=== PATIENT | female | born 1965 ===

== ENCOUNTER 2020-08-13 08:16 | Observation (INO) ==
[~2020-08-13 08:16] MED LIST: Buffered Lidocaine 1% SYRIN 1 ml INTRADERM ONE; Famotidine IV 10 MG/ML 2 ml VIAL (20 mg) IV ONE; Lactated Ringers 1000 ml BAG 1,000 ML IV SCH
[2020-08-13] MEDS ORDERED: Propofol 10 MG/ML 20 ML BTL ONE ×3 (08:36→11:47)
[2020-08-13] MEDS ORDERED: Lidocaine 2% PF 5 ML VIAL ONE ×2 (08:38→09:44)
[2020-08-13] MEDS ORDERED: Midazolam 2 mg/2 ml VIAL 1 mg/ml 2 ml VIAL (2 mg) ONE (08:39)
[2020-08-13] MEDS ORDERED: Ondansetron 4 mg VIAL 2 MG/ML 2 ml VIAL ONE ×2 (08:41→14:52)
[2020-08-13] MEDS ORDERED: ceFAZolin 2 GM PREMIX 2 GM/50 ML BAG ONE (08:44)
[2020-08-13] MEDS ORDERED: Famotidine IV 10 MG/ML 2 ml VIAL (20 mg) ONE (08:45)
[2020-08-13] MEDS ORDERED: Buffered Lidocaine 1% SYRIN 1 ml INTRADERM ONE (08:45)
[2020-08-13] MEDS ORDERED: ROPIVACAINE 5 MG/ML 30 ML BTL (0.5%) ONE ×2 (09:25→09:44)
[2020-08-13] MEDS ORDERED: fentaNYL 100 mcg/2 ml 50 MCG/ML VIAL ONE (09:44)
[2020-08-13] MEDS ORDERED: Midazolam 10 mg/10 ml VIAL 1 mg/ml 10 ml VIAL (10 mg) ONE (09:44)
[2020-08-13] MEDS ORDERED: Bupivacaine 0.5% SDV PF 30ML VIAL ONE (09:57)
[2020-08-13] MEDS ORDERED: DiMENhydriNATE IV 50 mg/ml 1 ml VIAL IV PUSH PRN (10:56)
[2020-08-13] MEDS ORDERED: Naloxone 0.4 mg VIAL 0.4 mg/ml 1 ml VIAL IV PRN (10:56)
[2020-08-13] MEDS ORDERED: Ondansetron 4 mg VIAL 2 MG/ML 2 ml VIAL IV PRN (10:56)
[2020-08-13] MEDS ORDERED: fentaNYL 100 mcg/2 ml 50 MCG/ML VIAL IV PRN (10:56)
[2020-08-13] MEDS ORDERED: Glycopyrrolate IV 0.2 MG/ML 1 ML VIAL ONE (10:57)
[2020-08-13] MEDS ORDERED: diPHENhydraMINE 25 mg TAB PO PRN (13:35)
[2020-08-13] MEDS ORDERED: Morphine 2 MG/ML SYRINGE IV PRN (13:35)
[2020-08-13] MEDS ORDERED: Ondansetron ODT 4 mg TAB 4 MG TAB PO PRN (13:35)
[2020-08-13] MEDS ORDERED: diPHENhydraMINE IV 50 MG/ML 1 ml VIAL (BENADRYL) IV PRN (13:35)
[2020-08-13] MEDS ORDERED: Magnesium Hydroxide LIQ 30 ML UDC PO PRN (13:35)
[2020-08-13] MEDS ORDERED: Lactulose 30 ml UDC PO PRN (13:35)
[2020-08-13] MEDS: Lactated Ringers 1000 ml BAG 1,000 ML IV SCH (14:56)
[2020-08-13] MEDS: Ondansetron 4 mg VIAL 2 MG/ML 2 ml VIAL IV PRN ×2 (14:56→21:49)
[2020-08-13] MEDS ORDERED: Ketamine HCL 50 mg/ml 10 ml VIAL (500 MG) ONE ×2 (14:56→15:07)
[2020-08-13] MEDS: oxyCODONE/Acetamin 5/325 mg TAB PO PRN (20:36)
[2020-08-13] MEDS: Magnesium Hydroxide LIQ 30 ML UDC PO SCH (20:36)
[2020-08-13] MEDS: ceFAZolin 1 GM ADVAN 1 GM in NS 0.9% 50 ML 50 ML IVPB SCH (21:52)
[2020-08-14] MEDS: Lactated Ringers 1000 ml BAG 1,000 ML IV SCH (01:30)
[2020-08-14 05:23] LABS: Hematocrit 37 % (35-47); Hemoglobin 12.8 g/dL (12.0-16.0); Platelet Count 236 10^3/uL (150-450)
[2020-08-14 05:40] LABS: BUN/Creatinine Ratio 17.2 (8-20); Calcium 8.6 mg/dL (8.6-10.3); EGFR African American 116.1 (>60); Potassium 4.1 mmol/L (3.5-5.0)
[2020-08-14] MEDS: ceFAZolin 1 GM ADVAN 1 GM in NS 0.9% 50 ML 50 ML IVPB SCH ×2 (05:42→13:40)
[2020-08-14] MEDS: oxyCODONE/Acetamin 5/325 mg TAB PO PRN ×3 (05:42→13:42)
[2020-08-14] MEDS ORDERED: Vitamin THERAPEUTIC TAB PO SCH (09:00)
[2020-08-14] MEDS ORDERED: Polyethylene Glycol 3350 17 GM PACKET PO SCH (09:00)
[2020-08-14] MEDS: Magnesium Hydroxide LIQ 30 ML UDC PO SCH (09:37)
[2020-08-14 11:21] VITALS: BP 97/61
[2020-08-16] MEDS ORDERED: Scopolamine PATCH Remove NOTE PATCH OFF ONE (06:00)
== END 2020-08-14 15:10 | disposition home or self-care (01) ==
LOC: OR 08:16 → SSU 08:16
PROVIDERS: ADMIT Orthopaedic Surgery Adult Reconstructive Orthopaedic Surgery; ATTEND Orthopaedic Surgery Adult Reconstructive Orthopaedic Surgery

== ENCOUNTER 2021-07-20 11:45 | Observation (INO) ==
[~2021-07-20 11:45] MED LIST changes: -Famotidine IV 10 MG/ML 2 ml VIAL (20 mg) IV ONE
[2021-07-20] MEDS ORDERED: Buffered Lidocaine 1% SYRIN 1 ml INTRADERM ONE (12:16)
[2021-07-20] MEDS ORDERED: ceFAZolin 2 GM in NS PREMIX 2 GM/100 ML BAG IVPB ONE (12:16)
[2021-07-20] MEDS ORDERED: Lidocaine 2% PF 5 ML VIAL ONE (13:02)
[2021-07-20] MEDS ORDERED: Acetaminophen IV 1 GM/100ML 100 ML IV ONE (13:38)
[2021-07-20] MEDS ORDERED: Ropivacaine 5 MG/ML 20 ML VIAL 0.5% (100 MG) ONE (14:48)
[2021-07-20] MEDS ORDERED: Midazolam 2 mg/2 ml VIAL 1 mg/ml 2 ml VIAL (2 mg) ONE ×2 (14:53→15:14)
[2021-07-20] MEDS ORDERED: Dexamethasone IV 4 MG/ML VIAL 1 ml VIAL ONE ×2 (14:53→15:45)
[2021-07-20] MEDS ORDERED: Bupivacaine 0.5% SDV PF 30ML VIAL ONE (14:54)
[2021-07-20] MEDS ORDERED: Lidocaine 1% MPF 5 ML VIAL ONE (15:10)
[2021-07-20] MEDS ORDERED: Rocuronium 50 mg VIAL 10 mg/ml 5 ml VIAL (50 mg) ONE (15:13)
[2021-07-20] MEDS ORDERED: fentaNYL 250 mcg/5 ml 50 MCG/ML 5 ml VIAL (250 MCG) ONE (15:14)
[2021-07-20] MEDS ORDERED: HYDROmorphone 0.5 MG/0.5 ML SYRINGE ONE ×2 (15:44→16:08)
[2021-07-20] MEDS ORDERED: Ondansetron 4 mg VIAL 2 MG/ML 2 ml VIAL ONE ×2 (15:45→16:22)
[2021-07-20] MEDS ORDERED: Propofol 10 MG/ML 20 ML BTL ONE (15:55)
[2021-07-20] MEDS ORDERED: diPHENhydraMINE 25 mg TAB PO PRN (16:24)
[2021-07-20] MEDS ORDERED: Magnesium Hydroxide LIQ 30 ML UDC PO PRN (16:24)
[2021-07-20] MEDS ORDERED: diPHENhydraMINE IV 50 MG/ML 1 ml VIAL (BENADRYL) IV PRN (16:24)
[2021-07-20] MEDS ORDERED: Ondansetron 4 mg VIAL 2 MG/ML 2 ml VIAL IV PRN (16:24)
[2021-07-20] MEDS ORDERED: Ondansetron ODT 4 mg TAB 4 MG TAB PO PRN (16:24)
[2021-07-20] MEDS ORDERED: Lactulose 30 ml UDC PO PRN (16:24)
[2021-07-20] MEDS ORDERED: Morphine 2 MG/ML SYRINGE IV PRN (16:35)
[2021-07-20] MEDS ORDERED: Lactated Ringers 1000 ml BAG 1,000 ML IV SCH (17:00)
[2021-07-20] MEDS ORDERED: HYDROmorphone 1 MG/1 ML SYRINGE ONE (18:27)
[2021-07-20] MEDS ORDERED: DiMENhydriNATE IV 50 mg/ml 1 ml VIAL IV PUSH PRN (18:28)
[2021-07-20] MEDS ORDERED: Naloxone 0.4 mg VIAL 0.4 mg/ml 1 ml VIAL IV PRN (18:28)
[2021-07-20] MEDS: HYDROmorphone 1 MG/1 ML SYRINGE IV PRN ×2 (18:34→18:44)
[2021-07-20] MEDS ORDERED: fentaNYL 100 mcg/2 ml 50 MCG/ML VIAL ONE ×2 (18:50→19:54)
[2021-07-20] MEDS: fentaNYL 100 mcg/2 ml 50 MCG/ML VIAL IV PRN ×4 (18:55→19:50)
[2021-07-20] MEDS: Magnesium Hydroxide LIQ 30 ML UDC PO SCH (21:17)
[2021-07-21] MEDS: ceFAZolin 1 GM ADVAN 1 GM in NS 0.9% 50 ML 50 ML IVPB SCH ×2 (00:24→07:39)
[2021-07-21 06:15] LABS: Hematocrit 38 % (35-47); Hemoglobin 12.7 g/dL (12.0-16.0); Platelet Count 262 10^3/uL (150-450)
[2021-07-21 06:31] LABS: Calcium 8.7 mg/dL (8.6-10.3); Potassium 3.9 mmol/L (3.5-5.0); eGFR CKD-EPI 92.8 (>60)
[2021-07-21 08:08] VITALS: BP 109/73
[2021-07-21] MEDS ORDERED: Vitamin THERAPEUTIC TAB PO SCH (09:00)
[2021-07-21] MEDS: Magnesium Hydroxide LIQ 30 ML UDC PO SCH (09:38)
== END 2021-07-21 11:10 | disposition home or self-care (01) ==
LOC: OR 11:45 → SSU 11:45
PROVIDERS: ADMIT Orthopaedic Surgery Adult Reconstructive Orthopaedic Surgery; ATTEND Orthopaedic Surgery Adult Reconstructive Orthopaedic Surgery